=== PATIENT | female | born 1970 | race Caucasian/White ===

== ENCOUNTER → 2019-08-30 | Outpatient (REF) | LOC: M LAB LCGH 14:37 | PROVIDERS: ATTEND Physician Assistant | DX: L72.0 Epidermal cyst (principal) ==

== ENCOUNTER → 2023-06-07 | Outpatient (REF) | payer MEDICAID, OTHER | LOC: M PLALAB 16:18 | PROVIDERS: ATTEND Advanced Practice Midwife | DX: Z12.4 Encounter for screening for malignant neoplasm of cervix (principal) ==

== ENCOUNTER → 2025-06-25 | Outpatient (CLI) | payer MEDICAID, OTHER | LOC: M WHC 10:19 | PROVIDERS: ATTEND Advanced Practice Midwife | DX: Z12.31 Encounter for screening mammogram for malignant neoplasm of breast (principal) ==